=== PATIENT | female | born 1965 | race Caucasian/White ===

== ENCOUNTER 2017-07-27 17:54 | Emergency (ER) | payer BC ==
[2017-07-27 18:06] VITALS: BP 133/85
--- NOTE | 2017-07-27 18:15 | UC ---
Lower Extremity/Ankle HPI - HPI Summary HPI Summary: 52 y/o female presents to the urgent care c/o left foot pain s[place]p [place] about 2 weeks ago. Pt reports she has been limping since flexing her foot makes her pain worse. Pt has applied ice and elevate foot, but she hs not taking anything to alleviate pain since she is allergic to Ibuprofen PO and Codeine. Pt states pain is localized in the lateral side of the mid foot and radiates to her small toe at times. Pt denies numbness or tingling sensation, calf pain, SOB, chest pain, palpitation, Abdominal pain, N/V/D. - History of Current Complaint Chief Complaint: UCLowerExtremity Stated Complaint: FOOT INJURY Time Seen by Provider: 07/27/17 18:11 Hx Obtained From: Patient Onset/Duration: Gradual Onset, Lasting Weeks - 2 weeks, Still Present, Worse Since - 1 week Severity Initially: Moderate Severity Currently: Moderate Pain Intensity: 8 Pain Scale Used: 0-10 Numeric Aggravating Factor(s): Ambulation Alleviating Factor(s): Rest Able to Bear Weight: Yes - Risk Factors Gout Risk Factors: Negative DVT Risk Factors: Negative Septic Arthritis Risk Factor: Negative - Allergies/Home Medications Allergies/Adverse Reactions: Allergies Allergy/AdvReac Type Severity Reaction Status Date / Time codeine Allergy Hallucinati Verified 07/27/17 18:00 ons ibuprofen Allergy Hives Verified 07/27/17 18:00 morphine Allergy Hallucinati Verified 07/27/17 18:00 ons Home Medications: Home Medications Amitriptyline TAB* [Elavil TAB*] 10 mg PO DAILY 07/27/17 [History Confirmed ] Levothyroxine TAB* [Synthroid TAB*] 25 mcg PO DAILY 07/27/17 [History Confirmed 07/27/17] amLODIPine/Benazepril 11/28(NF [Lotrel 11/28(NF)] 1 cap PO DAILY 07/27/17 [ History Confirmed 07/27/17] PMH/Surg Hx/FS Hx/Imm Hx Previously Healthy: Yes Endocrine History: Hypothyroidism Cardiovascular History: Hypertension Neurological History: Migraine - Surgical History Surgical History: Yes Surgery Procedure, Year, and Place: HERNIA 1989'S. C SECTION 1998. HYSTERECTOMY 05/22/10 - Social History Occupation: Employed Full-time Lives: With Family Alcohol Use: None Substance Use Type: None Smoking Status (MU): Light Every Day Tobacco Smoker Review of Systems Constitutional: Negative Skin: Negative Eyes: Negative ENT: Negative Respiratory: Negative Cardiovascular: Negative Gastrointestinal: Negative Genitourinary: Negative Motor: Negative Neurovascular: Negative Musculoskeletal: Decreased ROM - left foot, Other: - left foot pain s/p injury Neurological: Negative Psychological: Negative Is Patient Immunocompromised?: No All Other Systems Reviewed And Are Negative: Yes Physical Exam - Summary Physical Exam Summary: Vital Signs Reviewed: Yes General : well developed, well nourished female w/o any apparent distress Eyes: Positive: Conjunctiva Clear - PERRLA, EOMI ENT: Positive: Normal ENT inspection, Hearing grossly normal, Pharynx normal, TMs normal Neck: Positive: Supple, Nontender, No Lymphadenopathy Respiratory: Positive: Chest non-tender, Lungs clear, Normal breath sounds, No respiratory distress Cardiovascular: Positive: RRR, No Murmur, Pulses Normal Abdomen Description: Positive: Nontender, No Organomegaly, Soft. Negative: CVA Tenderness (R), CVA Tenderness (L) Bowel Sounds: Positive: Present Musculoskeletal: Positive: Strength Intact, ROM Intact, No Edema, LF Foot/Toes: Pt is able to bear weight but ambulate with mild limping. LF foot :No surface trauma, ecchymosis, erythema, lesions, ulcers or break in skin integrity. The LF foot is without obvious asymmetry or deformity when compared to the Rt foot. No bony step-off, No tenderness to palpation over toes, point tenderness over the lateral base of the 5th metatarsal w/ mild swelling, no tenderness of hindfoot, FROM of the left abkle and foot. due to pain. Distal motor and neurovascular status are intact. Neurological Exam: Normal Psychological Exam: Normal Skin Exam: Normal Triage Information Reviewed: Yes Vital Signs: Initial Vital Signs Temp 98.7 F 07/27/17 18:01 Pulse 91 07/27/17 18:01 Resp 18 07/27/17 18:01 BP 133/85 07/27/17 18:01 Pulse Ox 97 07/27/17 18:01 Lower Extremity Course/Dx - Course Course Of Treatment: 52 y/o female presents to the urgent care c/o left foot pain s/p [place] her [place] about 2 weeks ago. Pt reports she has been limping since flexing her foot makes her pain worse. Pt has applied ice and elevate foot, but she hs not taking anything to alleviate pain since she is allergic to Ibuprofen PO and Codeine. Pt states pain is localized in the lateral side of the mid foot and radiates to her small toe at times. Pt denies numbness or tingling sensation, calf pain, SOB, chest pain, palpitation, Abdominal pain, N/V/D.Hx obtained. LF foot X-ray ordered, Impression:There was no fracture, dislocation, soft tissue swelling or FB noted. There is minimal Achilles tendo insertion spur observed. Probably tendonitis. Pt's foot immobilized with roderick-bandage and given CAM boot, sicne Pt declines post-op shoe to avoid flexion. Advised RICE, and Rx Tylenol PO for pain , If not improvement of symptoms to f/u with Orthopedic DR Ellison referral for further evaluation and treatment. Pt understood and agreed with D/C instructions. - Differential Dx/Diagnosis Differential Diagnosis/HQI/PQRI: Contusion, Fracture (Closed), Sprain, Strain, Tendonitis Provider Diagnoses: 1-Left foot pain s/p injury. 2-Left foot sprain Discharge - Sign-Out/Discharge Documenting (check all that apply): Discharge/Admit/Transfer - D/C home - Discharge Plan Condition: Stable Disposition: HOME Prescriptions: Acetaminophen TAB* [Tylenol TAB*] 650 mg PO Q6H PRN #30 tab PRN Reason: Pain Patient Education Materials: Foot Sprain (ED) Forms: *Work Release Referrals: Umesh Ellison MD [Medical Doctor] - 1 Week Srini Maurer MD [Primary Care Provider] - 1 Week Additional Instructions: 1-Please take medications as directed to alleviate pain and swelling. 2-Please apply ice, keep your foot immobilized with the Roderick bandage and Cam- Boot to avoid flexion of your foot. Avoid strenuous exercise or standing for long periods of time 3- Please f/u with your PCP or Orthopedic Dr Ellison in 1 week if not improvement of symptoms for further evaluation and treatment. - Billing Disposition and Condition Condition: STABLE Disposition: Home
--- NOTE | 2017-07-27 18:44 | RAD ---
Indication: LEFT foot pain following twisting injury. Injury 10 days ago. Continued pain at the base of the fifth metatarsal. Comparison: No relevant prior exams available on the [facility] P[facility] for comparison. Technique: AP, lateral, and oblique views LEFT foot. Report: Negative for fracture or malalignment. Minimal Achilles tendon insertion bone spur. Unremarkable soft tissue contours. IMPRESSION: Negative for fracture.
[2017-07-27] MEDS ORDERED: Acetaminophen TAB* 325 MG PO ONE (18:45)
== END 2017-07-27 19:23 | disposition home or self-care (01) ==
LOC: UCEAST 17:54
DX: S93.602A Unspecified sprain of left foot, initial encounter (principal); X50.1XXA Overexertion from prolonged static or awkward postures, initial encounter; Y93.I9 Activity, other involving external motion; Y92.39 Other specified sports and athletic area as the place of occurrence of the external cause; E03.9 Hypothyroidism, unspecified; I10 Essential (primary) hypertension; G43.909 Migraine, unspecified, not intractable, without status migrainosus; Z88.6 Allergy status to analgesic agent; Z88.5 Allergy status to narcotic agent; F17.200 Nicotine dependence, unspecified, uncomplicated
CPT/HCPCS: 99213; A9270-GY; G0463